=== PATIENT | male | born 1970 | race African-American/Black ===

== ENCOUNTER 2017-02-02 15:24 | Emergency (ER) | payer OTHER ==
[2017-02-02] MEDS ORDERED: TORADOL 60 MG VIAL ONE (15:31)
[2017-02-02] MEDS ORDERED: TORADOL 60 MG VIAL IM ONE (15:33)
[2017-02-02 15:34] VITALS: BMI 30.8
--- NOTE | 2017-02-02 15:58 | DR.GENAD ---
HPI - PCP Primary Care Physician: Melina - HPI Comment HPI Comment: TETANUS UTD. NO OTHER INJURY REPORTED. - Complaint/Symptoms Chief Complaint Doctors Comments: PATIENT WAS AT WORK AND ACCIDENTALLY STAPLE TWO AND HALF INCHE STAPLE TO THE BACK OF HIS ANKLE, LOWER ASPECT THROUGH THE BOAT. STAPLE IN FIRM AND IS EMBEDED IN THE BONE. Chief Complaint:: "I was at work and a 2 and a half inch staple got shot into my foot." - Nurses notes reviewed Nurses Notes Review: Yes - Source History Provided: Patient - Mode of Arrival Mode of Arrival: Wheelchair - Timing Onset of Chief Complaint: 02/02/17 Came on: Suddenly - Duration Duration: Constant Duration: Days - Severity Severity: Moderate PMH - PMH Past Medical History: No Past Surgical History: No - Family History History of Family Medical Conditions: No - Social History Does patient currently use any type of tobacco product: No Have you used tobacco products in the last 12 months: No Type of Tobacco Use: None Does any household member use tobacco: No Alcohol Use: Occasionally Do you use any recreational Drugs:: No Lives With: Family Lives Where: Home - infectious screening In the last 2 months have you had wt loss of >10#?: NO Have you had fever, night sweats or hemotysis?: No Have you traveled outside the country in the last 6 months?: No Isolation: Standard ROS - Review of Systems Constitutional: No Symptoms Reported Eyes: No Symptoms Reported ENTM: No Symptoms Reported Respiratoy: No Symptoms Reported Cardiovascular: No Symptoms Reported Gastrointestinal/Abdominal: No Symptoms Reported Genitourinary: No Symptoms Reported Neurological: No Symptoms Reported Musculoskeletal: Ankle (FB), Foot (CALCANEAL FB) Integumentary: No Symptoms Reported Hematologic/Lymphatic: No Symptoms Reported Endocrine: No Symptoms Reported All Other Systems: Reviewed and Negative PE - Vital Signs Vitals: Temperature 98.9 F Pulse Rate [Apical] 100 Pulse Rate 59 Respiratory Rate 18 Blood Pressure [Left Arm] 127/82 Blood Pressure 134/80 O2 Sat by Pulse Oximetry 100 - General Limitations: No Limitations General Appearance: Alert - Head Head Exam: Normal Inspection - Eyes Eye exam: Normal Appearance - ENT ENT Exam: Normal External Ear Exam External Ear Exam: Normal External Inspection TM/Canal Exam: Bilateral Normal Nose Exam: Normal Nose Exam Mouth Exam: Normal Inspection Throat Exam: Normal Inspection - Neck Neck Exam: Trachea Midline (TWO AND HALF INCHE STAPLE LT ANKLE AT THE LOWER POSTERIOR ASPECT. ) - Chest Chest Inspection: Symmetric Chest Wall Rise - Respiratory Respiratory Exam: Normal Lung Sounds Bilat Respiratory Exam: Bilateral Clear to Auscultation - Cardiovascular Cardiovascular Exam: Regular Rate, Normal Rhythm, Normal Heart Sounds - Abdominal Exam Abdominal Exam: Normal Bowel Sounds, Soft. negative: Tenderness - Extremities Extremities Exam: Tenderness (2,5 INCHES STAPLE IN LT POSTERIOR ANKLE TTHROUGH PATIENTS BOAT. STAPLE ENBEDDED IN THE BONE.) - Back Back Exam: Normal Inspection - Neurologic Neurological Exam: Alert, Oriented X3 - Psychiatric Psychiatric Exam: Normal Affect, Normal Mood - Skin Skin Exam: Normal Color MDM - Additional Information Additional Information Obtained From: Family - Differential Diagnosis Differential Diagnosis: PUNCTURE WOUND, FB LEFT ANKLE. Course - Treatment Treatment: SEE ORDERS. ANCEF, 2GM IVPB IN ED. - Reevaluation 1st: Improved - Consultation Consultation Comments: DISCUSS PATIENT WITH DR. SCOTT, WANT ME TO REMOVE STABLE AND IRRIGATE WOUND WITH NS. - Education/Counseling Education/Counseling: Patient, Family, Education Educated On: Treatment, Diagnosis, Needs for Follow Up ROR - Labs Reviewed Laboratory: Non-DOT Drug Screen Collected 02/02/17 17:38 - XRAY XRAY Interpreted by: Radiologist XRAY Findings: STAPLE EMBEDED IN LEFT CALCANEUS.STAPLE WENT THROUGH PATIENTS BOOT. Procedures - Procedure Comments Procedures: CLEAN PUNCTURE WOUND BEHIND LT ANKLE. OPEN WOUND UP SURGICALLY AND IRREGATED WITH 1L NS. PRESSURE DRESSING APPLIED TO WOUND. - Diagnosis Discharge Problem: Puncture wound, Superficial foreign body, left foot, initial encounter - Discharge Plan Disposition: 01 HOME, SELF-CARE Condition: Stable Prescriptions: Cephalexin [KEFLEX CAP 500 MG *] 500 mg PO QID #40 cap Ibuprofen [MOTRIN TAB 800 MG *] 800 mg PO Q8H PRN #30 tab PRN Reason: Pain/Inflammation Tramadol HCl 50 mg PO Q8H #20 tablet - Follow ups/Referrals Follow ups/Referrals: WILIAM AGUILLON [Primary Care Provider] - 2 days FABIOLA HOLLOWAY [STAFF PHYSICIAN] - 02/03/17 - Instructions Instructions: Puncture Wound, [id number] Additional Instructions: RETURN TO ED IF WORSE. YOU ALSO HAD STAPLE EMBEDED IN LEFT CALCANEAL BONE
--- NOTE | 2017-02-02 16:24 | RAD ---
Examination: Left ankle, three views History: Foreign body, stable, in back of foot Findings: The ankle joint is symmetrically preserved. No fractures demonstrated. There are multiple m etallic foreign objects dorso lateral to the foot. In addition there is a metallic nail or staple pos teriorly, possibly entering the calcaneus. No fracture is seen. Impression: Findings suggest a metallic penetrating object in the posterior 3rd of the calcaneus. Cor relate clinically. Reported By:
--- NOTE | 2017-02-02 17:28 | RAD ---
Examination: Calcaneus, left, two views History: Staple in heel Findings: Examination of the calcaneus was performed through a shoe. There is a metallic staple poste riorly, apparently entering the posterior margin of the calcaneus. No fracture or contour deformity i s noted. Impression: Metallic staple in posterior 3rd of calcaneus. Reported By:
[2017-02-02] MEDS ORDERED: NS IRRIGATION 1000 ML 3,000 ML ONE (17:39)
[2017-02-02] MEDS ORDERED: DIPRIVAN VIAL 20 ML ONE ×2 (18:07→18:23)
[2017-02-02] MEDS ORDERED: NS 500 ML IV 500 ML IV ONE (18:15)
[2017-02-02] MEDS ORDERED: XYLOCAINE 2 % (PLAIN) ONE (18:26)
[2017-02-02] MEDS ORDERED: NS 50 ML IV 50 ML IV ONE (19:05)
[2017-02-02] MEDS ORDERED: ANCEF VIAL 1 GM ONE (19:05)
[2017-02-02] MEDS ORDERED: ANCEF IV ONE (19:10)
[2017-02-02] MEDS ORDERED: NS IV ONE (19:10)
[2017-02-02] MEDS ORDERED: SPIKE MINIBAG IV ONE (19:10)
[2017-02-02] MEDS ORDERED: BACTROBAN OINT TOP ONE (19:18)
[2017-02-02] MEDS ORDERED: BACITRACIN ZINC ONE (19:19)
--- NOTE | 2017-02-02 20:17 | RAD ---
Left calcaneus series: Indication: Left ankle foreign body. Comparison: None available. Technique: Frontal and lateral views of the left calcaneus provided. Findings/impression: Calcaneus is normal in alignment without acute skeletal abnormality. Punctate me tallic foreign body seen only on the lateral view is likely artifactual. Otherwise, no foreign bodies identified. The joint spaces are preserved without arthropathy. Reported By:
[2017-02-02 20:38] VITALS: BP 127/82
== END 2017-02-02 20:30 | disposition home or self-care (01) ==
LOC: ER 15:34
PROC: 0HCNXZZ Extirpation of Matter from Left Foot Skin, External Approach (ICD-10-PCS; principal; 2017-02-02)
DX: S90.852A Superficial foreign body, left foot, initial encounter (principal); W45.8XXA Other foreign body or object entering through skin, initial encounter; Y92.69 Other specified industrial and construction area as the place of occurrence of the external cause
CPT/HCPCS: 28190; 73610; 73650; 80305; 96365; 96372; 99283; A4222; J0690; J1885; J2001; J3490